=== PATIENT | male | born 2000 | race Caucasian/White ===

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

== ENCOUNTER 2021-02-19 08:00 | Outpatient (CLI) | payer MEDICAID ==
--- NOTE | 2021-02-19 17:12 | XRAY Report ---
PROCEDURE: Tib/Fib RT INDICATIONS: RIGHT FIBULAR HEAD PX TECHNIQUE: 2 views of the tibia and fibula were acquired. COMPARISON: None FINDINGS: Bones: No fractures or dislocations. No suspicious bony lesions. Soft tissues: No suspicious soft tissue calcifications or masses. IMPRESSION: No acute lower leg fracture or dislocation. No finding to explain patient's symptoms. Reviewed by: Jesse Tucker MD on 02/19/2021 5:10 PM PST Approved by: Jesse Tucker MD on 02/19/2021 5:10 PM [facility] Station ID: [id number]
== END 2021-02-19 23:59 | disposition home or self-care (01) ==
LOC: DI.S 08:00
PROVIDERS: ATTEND Physician Assistant
DX: M25.561 Pain in right knee (principal)